=== PATIENT | female | born 1990 | race Caucasian/White ===

== ENCOUNTER 2017-10-26 04:20 | Inpatient (IN) | payer BC ==
[~2017-10-26] VITALS: Ht 160 cm; Wt 66.7 kg
[2017-10-26] MEDS ORDERED: OXYTOCIN/0.9 % SODIUM CHLORIDE 1,000 ML IV SCH ×2 (04:43→18:37)
[2017-10-26] MEDS ORDERED: NALBUPHINE HCL 10 MG/ML AMP IVP PRN (04:45)
[2017-10-26] MEDS ORDERED: TERBUTALINE SULFATE 1 MG/ML VIAL SUBCUT ONE (04:45)
[2017-10-26] MEDS ORDERED: AMPICILLIN SODIUM 2 GM in NS 100 ML IV ONE (04:45)
[2017-10-26 05:15] VITALS: BP_SYST 120
[2017-10-26] MEDS ORDERED: AMPICILLIN SODIUM 2 GM VIAL ONE (05:33)
[2017-10-26] MEDS: LR 1,000 ML IV SCH ×2 (05:35→11:19)
[2017-10-26 05:47] LABS: HEMATOCRIT 27.5 % (36-48); HEMOGLOBIN 9.1 g/dL (12.0-16.0); MEAN CORPUSCULAR HEMOGLOBIN 26 pg (27-31); MEAN CORPUSCULAR HGB CONC 33 % (32-36); MEAN CORPUSCULAR VOLUME 78 fL (79.0-98.0); PLATELET COUNT (AUTO) 195 K/uL (130-430); RED BLOOD CELL COUNT(AUTO) 3.52 MIL/uL (4.2-6.2); RED CELL DISTRIBUTION WIDTH 15.5 % (9.0-15.0); WHITE BLOOD COUNT (AUTO) 9.6 K/uL (4.8-10.8)
[2017-10-26 06:27] LABS: BAND % (MANUAL) 2 % (0-6); BASOPHILS % (MANUAL) 0 % (0-2); EOSINOPHILS % (MANUAL) 0 % (0-7); LYMPHOCYTES % (MANUAL) 18 % (20-46); MONOCYTES % (MANUAL) 4 % (0-11)
[2017-10-26] MEDS ORDERED: ROPIVACAINE 0.2% 100 ML ONE ×2 (07:46→09:38)
[2017-10-26] MEDS ORDERED: fentaNYL CITRATE/PF 100 MCG/2 ML AMP ONE ×3 (07:46→09:39)
[2017-10-26] MEDS ORDERED: LR 500 ML IV ONE (09:35)
[2017-10-26] MEDS ORDERED: fentaNYL CITRATE/PF 100 MCG/2 ML AMP EP ONE (09:45)
[2017-10-26] MEDS ORDERED: ePHEDrine sulfate 50 MG/ML VIAL IVP PRN (09:45)
[2017-10-26] MEDS ORDERED: FENT2mCg/mL-ROPIVA0.2%/NS EPID 150 ML EP SCH (09:45)
[2017-10-26] MEDS: AMPICILLIN SODIUM 1 GM in NS 50 ML IV SCH ×2 (11:18→13:51)
[2017-10-26] MEDS ORDERED: ROPIVACAINE 0.2% (NAROPIN) PF SOLUTION 100 ML BOTTLE EP ONE (13:46)
[2017-10-26] MEDS ORDERED: ROPIVACAINE HCL/PF 5 MG/ML 0.5% 30 ML VIAL EP ONE (13:47)
[2017-10-26] MEDS ORDERED: OXYTOCIN 10 UNIT/ML VIAL ONE (18:27)
[2017-10-26] MEDS ORDERED: OXYTOCIN/0.9 % SODIUM CHLORIDE 1,000 ML IV ONE (18:37)
[2017-10-26] MEDS ORDERED: METHYLERGONOVINE MALEATE 0.2 MG/ML AMP ONE (18:42)
[2017-10-26] MEDS ORDERED: DIPH-TET-PERTUS Vaccine 0.5 ML VIAL (ADACEL) I.M. PRN (18:45)
[2017-10-26] MEDS ORDERED: ANUSOL 1 EA SUPP.RECT (PREPARATION H) RC PRN (18:45)
[2017-10-26] MEDS ORDERED: GLYCERIN/WITCH HAZEL (TUCKS PADS) TP PRN (18:45)
[2017-10-26] MEDS ORDERED: METHYLERGONOVINE MALEATE 0.2 MG TABLET PO PRN (18:45)
[2017-10-26] MEDS ORDERED: RHO(D) IMMUNE GLOBULIN/MALTOSE 1500 UNITS/1.3 ML (WINHRO) IM PRN (18:45)
[2017-10-26] MEDS ORDERED: SENNOSIDES/DOCUSATE SODIUM 1 TAB TABLET(SENOKOT-S) PO PRN (18:45)
[2017-10-26] MEDS ORDERED: DERMOPLAST SPRAY TP PRN (18:45)
[2017-10-26] MEDS ORDERED: HYDROCORTISONE 0.5%, 28.35 GM TOPICAL CREAM TP PRN (18:45)
[2017-10-26] MEDS ORDERED: MEASLES,MUMPS&RUBELLA VACC/PF 12500 UNIT/0.5 ML VIAL SUBQ PRN (18:45)
[2017-10-26] MEDS ORDERED: LANOLIN 7 GM OINT. TP PRN (18:45)
[2017-10-26] MEDS: IBUPROFEN 600 MG TABLET PO SCH (20:00)
[2017-10-26] MEDS ORDERED: OXYTOCIN 10 UNIT/ML VIAL IM ONE (20:00)
[2017-10-26] MEDS ORDERED: METHYLERGONOVINE MALEATE 0.2 MG/ML AMP IM ONE (20:00)
[2017-10-26] MEDS ORDERED: TEMAZEPAM 15 MG CAPSULE PO PRN (21:00)
[2017-10-27] MEDS: IBUPROFEN 600 MG TABLET PO SCH ×3 (02:00→18:03)
[2017-10-27 07:01] LABS: HEMOGLOBIN 7.2 g/dL (12.0-16.0); RED CELL DISTRIBUTION WIDTH 15.5 % (9.0-15.0)
[2017-10-27 07:25] LABS: MEAN CORPUSCULAR HEMOGLOBIN 26 pg (27-31); MEAN CORPUSCULAR HGB CONC 33 % (32-36); MEAN CORPUSCULAR VOLUME 78 fL (79.0-98.0); PLATELET COUNT (AUTO) 181 K/uL (130-430); RED BLOOD CELL COUNT(AUTO) 2.76 MIL/uL (4.2-6.2); WHITE BLOOD COUNT (AUTO) 17.1 K/uL (4.8-10.8)
[2017-10-27 07:30] LABS: HEMATOCRIT 21.5 % (36-48)
[2017-10-27 07:56] LABS: BASOPHILS % (MANUAL) 0 % (0-2); EOSINOPHILS % (MANUAL) 0 % (0-7); LYMPHOCYTES % (MANUAL) 6 % (20-46); MONOCYTES % (MANUAL) 8 % (0-11)
[2017-10-27 08:02] LABS: WBC MORPHOLOGY HYPERSEGMENTED NEUT
[2017-10-27] MEDS ORDERED: FERROUS SULFATE 325 MG TABLET.DR PO SCH (09:00)
[2017-10-27] MEDS: DOCUSATE SODIUM 100 MG CAPSULE PO PRN (13:15)
[2017-10-28] MEDS: IBUPROFEN 600 MG TABLET PO SCH ×3 (00:04→12:18)
[2017-10-28] MEDS: DOCUSATE SODIUM 100 MG CAPSULE PO PRN (06:12)
== END 2017-10-28 13:10 | disposition home or self-care (01) | DRG 775 ==
LOC: SPU 04:20
PROVIDERS: ADMIT Obstetrics & Gynecology; ATTEND Obstetrics & Gynecology
PROC: 10D07Z6 Extraction of Products of Conception, Vacuum, Via Natural or Artificial Opening (ICD-10-PCS; principal; 2017-10-26)
PROC: 3E033VJ Introduction of Other Hormone into Peripheral Vein, Percutaneous Approach (ICD-10-PCS; 2017-10-26)
PROC: 3E0R3BZ Introduction of Anesthetic Agent into Spinal Canal, Percutaneous Approach (ICD-10-PCS; 2017-10-26)
PROC: 00HU33Z Insertion of Infusion Device into Spinal Canal, Percutaneous Approach (ICD-10-PCS; 2017-10-26)
DX: O30.003 Twin pregnancy, unspecified number of placenta and unspecified number of amniotic sacs, third trimester (principal); Z37.2 Twins, both liveborn; O69.81X1 Labor and delivery complicated by cord around neck, without compression, fetus 1; O76 Abnormality in fetal heart rate and rhythm complicating labor and delivery; O99.824 Streptococcus B carrier state complicating childbirth; O14.94 Unspecified pre-eclampsia, complicating childbirth; O99.02 Anemia complicating childbirth; D64.9 Anemia, unspecified; Z3A.37 37 weeks gestation of pregnancy
CPT/HCPCS: 36415; 85007; 85027; 86592; 86886; 86900; 86901; J0290; J2210; J2590; J2795; J3010